=== PATIENT | female | born 1980 | race American Indian/Alaskan Native ===

== ENCOUNTER 2020-07-30 20:13 | Emergency (ER) | payer SELFPAY ==
[2020-07-30] MEDS ORDERED: diphenhydrAMINE 25 MG CAP PO ONE ×2 (20:43→23:15)
[2020-07-30] MEDS ORDERED: FAMOTIDINE 20 MG TAB PO ONE ×2 (20:43→23:15)
[2020-07-30] MEDS ORDERED: LIDOCAINE VISCOUS 2% 15 ML ORAL LIQD PO ONE ×2 (20:43→23:15)
[2020-07-30] MEDS ORDERED: predniSONE 20 MG TAB PO ONE ×2 (20:43→23:15)
[2020-07-30] MEDS ORDERED: ALUM-MAG HYDROXIDE-SIMETHICONE 200-200-20MG/5ML ORAL LIQD 30 ML PO ONE ×2 (20:43→23:15)
--- NOTE | 2020-07-30 20:48 | Event Note ---
ED Screening Note Date of service: 07/30/20 Time: 20:30 ED Screening Note: Patient is a 39-year-old -Spanish female with a history of asthma and xhk-[id number] diabetes who presents to the ED with complaint of acute onset persistent burning sensation in the epigastric area as well as in the esophagus and her throat and having 2 episodes of syncope after eating a highly spicy food in a restaurant about 1 hour ago. Patient states that she has previously had similar symptoms when she ate the same spicy food at the restaurant. Patient states that the syncopal episodes occurred consecutively and at that time she was short of breath. Patient states that she had a brief loss of consciousness. Patient denies chest pain, dizziness, nausea and vomiting, diarrhea, swollen lips or tongue, swollen throat, dysphagia, dysphonia, nasal and sinus congestion, diffuse urticarial rashes, cough, fever and chills. This initial assessment/diagnostic orders/clinical plan/treatment(s) is/are subject to change based on patients health status, clinical progression and re- assessment by fellow clinical providers in the ED. Further treatment and workup at subsequent clinical providers discretion. Patient/guardian urged not to elope from the ED as their condition may be serious if not clinically assessed and managed. Initial orders include: CBC, CMP, EKG, CXR, troponin, CT head w/o contrast
[2020-07-30 21:20] LABS: Basophils # (Auto) 0.1 K/mm3 (0.0-0.1); Basophils % (Auto) 0.7 % (0.0-1.8); Eosinophils # (Auto) 0.1 K/mm3 (0.0-0.4); Eosinophils % (Auto) 0.8 % (0.0-4.3); Hematocrit 47.6 % (30.3-42.9); Hemoglobin 15.4 gm/dl (10.1-14.3); Lymphocytes # (Auto) 2.5 K/mm3 (1.2-5.4); Lymphocytes % (Auto) 32.3 % (13.4-35.0); Mean Corpuscular HGB Conc 32 % (30-34); Mean Corpuscular Volume 89 fl (79-97); Monocytes # (Auto) 0.4 K/mm3 (0.0-0.8); Monocytes % (Auto) 4.8 % (0.0-7.3); Platelet Count 395 K/mm3 (140-440); Red Blood Count 5.37 M/mm3 (3.65-5.03); Red Cell Distribution Width 14.8 % (13.2-15.2)
[2020-07-30 21:34] LABS: Alanine Aminotransferase 16 units/L (7-56); Albumin 3.5 g/dL (3.9-5); BUN/Creatinine Ratio 10; Blood Urea Nitrogen 8 mg/dL (7-17); Calcium 8.1 mg/dL (8.4-10.2); Hemolysis Index 65
--- NOTE | 2020-07-30 21:34 | XRay Report ---
CHEST 1 VIEW, 07/30/2020 9:19 PM CLINICAL INFORMATION/INDICATION: Syncope COMPARISON: None. FINDINGS: SUPPORT DEVICES: None. HEART: The cardiac silhouette is normal in size. LUNGS/PLEURA: The lungs are clear of focal airspace disease or significant pleural effusion. ADDITIONAL FINDINGS: No additional acute findings. IMPRESSION: 1. No evidence of acute cardiopulmonary process. Signer Name: Annelise Butt MD Signed: 07/30/2020 9:29 PM Workstation Name: [id number]
[2020-07-30 21:37] LABS: INR 1.02 (0.87-1.13)
--- NOTE | 2020-07-30 21:52 | Cat Scan Report ---
CT BRAIN: 07/30/2020 INDICATION / CLINICAL INFORMATION: syncope x 2. COMPARISON: None available. FINDINGS: BRAIN/INTRACRANIAL STRUCTURES: Unenhanced CT images of the brain demonstrate no evidence of acute int racranial abnormality. Ventricles and sulci are normal in size and shape. There is no evidence of ischemic injury, hemorrhage, or mass. There are no abnormal extra-axial fluid collections. EXTRACRANIAL STRUCTURES: Unremarkable. IMPRESSION: Negative unenhanced CT of the brain. All CT scans at this location are performed using dose reduction to ALARA by means of automated expos ure control. Signer Name: Devan Velásquez MD Signed: 07/30/2020 9:48 PM Workstation Name: [id number]
--- NOTE | 2020-07-30 22:59 | Emergency Department Report ---
ED Syncope HPI - General Chief Complaint: Syncope Stated Complaint: WEAKNESS/SYNCOPE Time Seen by Provider: 07/30/20 22:26 Source: patient Exam Limitations: no limitations - History of Present Illness Initial Comments: Chief complaint: "I passed out at [employer]." HPI: This is a 39-year-old female with history of glucose intolerance, asthma, obesity who presents with syncopal episode after eating spicy food. Patient was at a seafood restaurant when she recalls eating a spicy hot sauce. She admittedly felt tingling in her throat and chest. She began to sweat. She then passed out while hearing the voice of her cousin who was attempting to treat her with a cold rag. Loss of consciousness was brief. Patient has similar episode with food intake on prior occasion. Patient denies hives, itchiness, throat or tongue swelling. No history of food allergy. Patient was in her normal state of health prior to the incident. No preceding palpitations or chest pain. Timing/Prior Episodes: remote history Precipitating Factors: Positive: diaphoresis, other (Eating spicy food) Context: sitting Loss of Consciousness: brief (seconds) Current Symptoms: back to normal ED Review of Systems ROS: Stated complaint: WEAKNESS/SYNCOPE Other details as noted in HPI Comment: All other systems reviewed and negative Constitutional: denies: chills, fever, malaise Respiratory: denies: cough, shortness of breath Cardiovascular: denies: chest pain, palpitations Gastrointestinal: denies: abdominal pain, nausea, vomiting ED Past Medical Hx - Past Medical History Previous Medical History?: Yes Hx Hypertension: Yes Hx Diabetes: Yes ("No longer a diabetic") Hx Asthma: Yes - Surgical History Past Surgical History?: Yes Hx Breast Surgery: Yes (Breast reduction) Additional Surgical History: "tubes in ears" - Social History Smoking Status: Never Smoker Substance Use Type: Alcohol ED Physical Exam - General Limitations: No Limitations General appearance: alert, in no apparent distress, other (Appears well, c omfortable, nontoxic) - Head Head exam: Present: atraumatic, normocephalic - Eye Eye exam: Present: normal appearance - ENT ENT exam: Present: mucous membranes moist - Neck Neck exam: Present: normal inspection, full ROM - Respiratory Respiratory exam: Present: normal lung sounds bilaterally. Absent: respiratory distress, wheezes, rales, rhonchi - Cardiovascular Cardiovascular Exam: Present: regular rate, normal rhythm, normal heart sounds. Absent: systolic murmur, diastolic murmur, rubs, gallop - GI/Abdominal GI/Abdominal exam: Present: soft, normal bowel sounds. Absent: distended, tenderness, guarding, rebound - Extremities Exam Extremities exam: Present: normal inspection - Back Exam Back exam: Present: normal inspection - Neurological Exam Neurological exam: Present: alert, oriented X3 - Psychiatric Psychiatric exam: Present: normal affect, normal mood - Skin Skin exam: Present: warm, dry, intact, normal color. Absent: rash ED Medical Decision Making - Lab Data Result diagrams: 07/30/20 21:04 07/30/20 21:04 Laboratory Results - last 24 hr 07/30/20 07/30/20 07/30/20 21:04 21:04 21:04 WBC 7.7 RBC 5.37 H Hgb 15.4 H Hct 47.6 H MCV 89 MCH 29 MCHC 32 RDW 14.8 Plt Count 395 Lymph % (Auto) 32.3 Summers % (Auto) 4.8 Eos % (Auto) 0.8 Baso % (Auto) 0.7 Lymph # (Auto) 2.5 Summers # (Auto) 0.4 Eos # (Auto) 0.1 Baso # (Auto) 0.1 Seg Neutrophils % 61.4 Seg Neutrophils # 4.7 PT INR Sodium 137 Potassium 4.1 Chloride 101.8 Carbon Dioxide 26 Anion Gap 13 BUN 8 Creatinine 0.8 Estimated GFR > 60 BUN/Creatinine Ratio 10 Glucose 160 H Calcium 8.1 L Magnesium Total Bilirubin 0.30 AST 18 ALT 16 Alkaline Phosphatase 75 Total Creatine Kinase Troponin T < 0.010 Total Protein 6.8 Albumin 3.5 L Albumin/Globulin Ratio 1.1 HCG, Qual Negative Plasma/Serum Alcohol 07/30/20 07/30/20 07/30/20 21:18 21:18 Unknown WBC RBC Hgb Hct MCV MCH MCHC RDW Plt Count Lymph % (Auto) Summers % (Auto) Eos % (Auto) Baso % (Auto) Lymph # (Auto) Summers # (Auto) Eos # (Auto) Baso # (Auto) Seg Neutrophils % Seg Neutrophils # PT 13.3 INR 1.02 Sodium Potassium Chloride Carbon Dioxide Anion Gap BUN Creatinine Estimated GFR BUN/Creatinine Ratio Glucose Calcium Magnesium 2.20 Total Bilirubin AST ALT Alkaline Phosphatase Total Creatine Kinase 93 Troponin T Total Protein Albumin Albumin/Globulin Ratio HCG, Qual Plasma/Serum Alcohol < 0.01 - EKG Data -: EKG Interpreted by Me EKG shows normal: sinus rhythm, axis, intervals, QRS complexes, ST-T waves Rate: normal - EKG Data Interpretation: normal EKG 07/30/20 22:56 EKG obtained EKG interpreted by me Normal sinus rhythm normal rate normal axis normal intervals no ST elevation no ST-T signs of ischemia normal EKG Rate 80 bpm - Radiology Data Radiology results: report reviewed CT BRAIN: 07/30/2020 INDICATION / CLINICAL INFORMATION: syncope x 2. COMPARISON: None available. FINDINGS: BRAIN/INTRACRANIAL STRUCTURES: Unenhanced CT images of the brain demonstrate no evidence of acute intracranial abnormality. Ventricles and sulci are normal in size and shape. There is no evidence of ischemic injury, hemorrhage, or mass. There are no abnormal extra-axial fluid collections. EXTRACRANIAL STRUCTURES: Unremarkable. IMPRESSION: Negative unenhanced CT of the brain. CHEST 1 VIEW, 07/30/2020 9:19 PM CLINICAL INFORMATION/INDICATION: Syncope COMPARISON: None. FINDINGS: SUPPORT DEVICES: None. HEART: The cardiac silhouette is normal in size. LUNGS/PLEURA: The lungs are clear of focal airspace disease or significant pleural effusion. ADDITIONAL FINDINGS: No additional acute findings. IMPRESSION: 1. No evidence of acute cardiopulmonary process. - Medical Decision Making Vasovagal syncope after eating spicy food. No indication of pulmonary embolism or arrhythmia. Patient low risk for structural heart disease considering lack of murmur or exertional syncope. Patient is discharged home. I do not suspect anaphylaxis. CBC chemistry magnesium EKG CT head x-ray all within normal limits. Urine test negative Critical care attestation.: If time is entered above; I have spent that time in minutes in the direct care of this critically ill patient, excluding procedure time. ED Disposition Clinical Impression: Vasovagal syncope Disposition: DC-01 TO HOME OR SELFCARE Is pt being admited?: No Does the pt Need Aspirin: No Condition: Stable Instructions: Syncope (ED), Syncope, [id number] Referrals: PRIMARY CARE, [Primary Care Provider] - 3-5 Days
[2020-07-30 23:40] VITALS: BP 132/81
== END 2020-07-30 23:38 | disposition home or self-care (01) ==
LOC: ED 20:13
DX: R55 Syncope and collapse (principal); I10 Essential (primary) hypertension; E11.9 Type 2 diabetes mellitus without complications; J45.909 Unspecified asthma, uncomplicated; E66.9 Obesity, unspecified; Z98.890 Other specified postprocedural states
CPT/HCPCS: 36415; 70450; 71045; 80053; 82550; 83735; 84484; 84703; 85025; 85610; 93005; 99284; J7512; 80320; G0480